=== PATIENT | male | born 1980 | race African-American/Black ===

== ENCOUNTER 2018-05-18 08:27 | Emergency (ER) | payer SELFPAY ==
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
== END 2018-05-18 11:05 | disposition home or self-care (01) ==
LOC: ERS 08:27
DX: S06.0X9A Concussion with loss of consciousness of unspecified duration, initial encounter (principal); S10.91XA Abrasion of unspecified part of neck, initial encounter; S30.811A Abrasion of abdominal wall, initial encounter; F32.9 Major depressive disorder, single episode, unspecified; F41.9 Anxiety disorder, unspecified; F17.210 Nicotine dependence, cigarettes, uncomplicated; Y04.0XXA Assault by unarmed brawl or fight, initial encounter
CPT/HCPCS: 70450; 72125

== ENCOUNTER 2021-08-24 02:14 | Emergency (ER) | payer SELFPAY | END 2021-08-24 03:16 | LOC: ERS 02:14 | DX: Z02.89 Encounter for other administrative examinations (principal); F17.210 Nicotine dependence, cigarettes, uncomplicated | CPT/HCPCS: 99283 ==